=== PATIENT | female | born 1940 | race Caucasian/White ===

== ENCOUNTER 2016-03-31 09:58 | Outpatient (CLI) | payer MEDICARE, BC | END 2016-03-31 09:59 | disposition home or self-care (01) | DX: M81.0 Age-related osteoporosis without current pathological fracture (principal); Z78.0 Asymptomatic menopausal state; E21.3 Hyperparathyroidism, unspecified ==

== ENCOUNTER 2016-04-11 08:00 | Outpatient (CLI) | payer MEDICARE, BC | END 2016-04-11 23:59 | DX: D75.89 Other specified diseases of blood and blood-forming organs (principal); E78.2 Mixed hyperlipidemia; Z79.899 Other long term (current) drug therapy; N18.9 Chronic kidney disease, unspecified; E21.0 Primary hyperparathyroidism; E11.9 Type 2 diabetes mellitus without complications; E55.9 Vitamin D deficiency, unspecified ==

== ENCOUNTER 2016-07-05 14:32 | Outpatient (CLI) | payer MEDICARE, BC | END 2016-07-05 14:33 | disposition home or self-care (01) | DX: N18.9 Chronic kidney disease, unspecified (principal); E11.9 Type 2 diabetes mellitus without complications; Z79.899 Other long term (current) drug therapy; E55.9 Vitamin D deficiency, unspecified; M81.0 Age-related osteoporosis without current pathological fracture ==

== ENCOUNTER 2016-08-11 06:11 | Day surgery (SDC) | payer MEDICARE, BC ==
[2016-08-11] MEDS ORDERED: PHENYLEPHRINE 2.5% OPHTH 2 ML DROPS ONE (06:22)
[2016-08-11 06:50] VITALS: BP 178/100
--- NOTE | 2016-08-11 08:43 | OPERATIVE REPORT ---
DATE OF SURGERY: 08/11/2016 00:00:00 She was scheduled for cataract surgery of the left eye; however cataract surgery was canceled preoperatively due to the patient's eating a meal at 6-o' clock this morning and unable to undergo sedation or any other anesthesia. Her cataract surgery will be rescheduled. JOB #: [id number] EXT JOB #:[id number] MTDElaine
== END 2016-08-11 06:12 | disposition home or self-care (01) ==
LOC: SDS 06:11
PROVIDERS: ATTEND Ophthalmology
DX: Z53.9 Procedure and treatment not carried out, unspecified reason (principal)

== ENCOUNTER 2016-09-08 07:55 | Day surgery (SDC) | payer MEDICARE, BC ==
[~2016-09-08 07:55] MED LIST: PHENYLEPHRINE 2.5% OPHTH 2 ML DROPS ONE
[2016-09-08] MEDS ORDERED: LACTATED RINGERS 500 ML IV ONE (08:01)
[2016-09-08] MEDS ORDERED: PROPARACAINE 0.5% OPHTH DROPS 15 ML OPTH ONE ×2 (08:32→09:15)
[2016-09-08] MEDS ORDERED: CYCLOPENTOLATE 1% OPHTH DROPS 2 ML OPTH ONE (08:32)
[2016-09-08] MEDS ORDERED: PHENYLEPHRINE 2.5% OPHTH 2 ML DROPS OPTH ONE (08:32)
[2016-09-08] MEDS ORDERED: KETOROLAC 0.45% OPHTH DROPS OPTH ONE (08:33)
[2016-09-08] MEDS ORDERED: BRIMONIDINE 0.2% OPHTH DROPS 5 ML OPTH ONE (09:14)
[2016-09-08] MEDS ORDERED: EPINEPHrine 1 MG/ML AMP IVP ONE (09:14)
[2016-09-08] MEDS ORDERED: CHONDR SULF/HYALURONATE SYRINGE IO ONE (09:15)
[2016-09-08] MEDS ORDERED: BSS/LIDOCAINE/EPINEPHRINE 1 ML SYRINGE IO ONE ×2 (09:16)
[2016-09-08] MEDS ORDERED: TIMOLOL 0.5% OPHTH DROPS OPTH ONE (09:16)
[2016-09-08] MEDS ORDERED: TRIAMCIN/MOXIFLOX/VANCO 1 ML VIAL IO ONE ×2 (09:16)
[2016-09-08] MEDS ORDERED: MIDAZOLAM 2 MG/2 ML VIAL IVP ONE (09:19)
[2016-09-08 09:49] VITALS: BP 131/57
--- NOTE | 2016-09-10 02:50 | OPERATIVE REPORT ---
DATE OF SURGERY: 09/08/2016 00:00:00 PREOPERATIVE DIAGNOSIS: Visually significant cataract, left eye. Cataract surgery was performed on th e right eye in 2002 by a different surgeon. POSTOPERATIVE DIAGNOSIS: Visually significant cataract, left eye. Cataract surgery was performed on t he right eye in 2002 by a different surgeon. PROCEDURE: Phacoemulsification and posterior chamber intraocular lens implant, left eye. SURGEON: Cristhian Villatoro MD ANESTHESIA: Monitored anesthesia care. COMPLICATIONS: None. OPERATIVE INDICATIONS: This is a 76-year-old woman with progressive vision loss in the left eye due t o 3+ nuclear sclerotic, 2 to 3+ cortical, and 2+ posterior subcapsular cataract. Best corrected visu al acuity was 20/100 with hand motion vision on glare in the left eye. Indications for surgery were overall decrease in vision, difficulty seeing words on a computer screen, difficulty reading, difficu lty seeing words closed caption or game scores on TV, difficulty seeing street signs, difficulty driv ing in low light or at night, difficulty driving at night because of headlights and difficulty with g lare of bright lights in some situation. She was consented at length concerning the risks and benefi ts of cataract surgery, after which she expressed a desire to proceed with surgery. OPERATIVE PROCEDURE: The patient was taken into operating room #2 and placed under monitored anesthes ia care. A surgical time-out was conducted, confirming correct the patient, correct procedure, and co rrect surgical site. She was given topical anesthesia and then prepped and draped in the usual steril e fashion. The eye was entered at the 6- and 3-o'clock positions. Intracameral shugarcaine was injected into the anterior chamber, followed by Viscoat. A continuous tear curvilinear capsulorrhexis was performed. T he nucleus was hydrodissected and phacoemulsified. The cortex was evacuated using automated infusion aspiration. Provisc was injected into the capsular bag and a 18.5-diopter intraocular lens inserted i nto the bag. Approximately 0.7 mL of a mixture of triamcinolone, moxifloxacin, and vancomycin was in jected subconjunctivally in the superior quadrant for infection and inflammation prophylaxis. I/A was used to evacuate the viscoelastic materials. The eye was inflated to physiologic pressure using kylah nced salt solution and found to be watertight. The patient was taken from the operating room in good condition and given postoperative instructions. JOB #: [id number] EXT JOB #:[id number]
== END 2016-09-08 07:56 | disposition home or self-care (01) ==
LOC: SDS 07:55
PROVIDERS: ATTEND Ophthalmology
PROC: 08RK3JZ Replacement of Left Lens with Synthetic Substitute, Percutaneous Approach (ICD-10-PCS; principal; 2016-09-08 09:00)
DX: E11.36 Type 2 diabetes mellitus with diabetic cataract (principal); H25.812 Combined forms of age-related cataract, left eye; Z79.82 Long term (current) use of aspirin; I10 Essential (primary) hypertension; E78.00 Pure hypercholesterolemia, unspecified; I25.10 Atherosclerotic heart disease of native coronary artery without angina pectoris; I49.3 Ventricular premature depolarization; Z82.49 Family history of ischemic heart disease and other diseases of the circulatory system; Z80.9 Family history of malignant neoplasm, unspecified; Z96.641 Presence of right artificial hip joint; Z95.5 Presence of coronary angioplasty implant and graft
CPT/HCPCS: 66984; A9270; V2632

== ENCOUNTER 2016-11-18 14:39 | Outpatient (CLI) | payer MEDICARE, BC ==
[2016-11-18 14:27] LABS: BILIRUBIN,TOTAL 0.5 mg/dL (0.2-1.0); CALCIUM 9.1 mg/dL (8.5-10.3); CREATININE 1.3 mg/dL (0.4-1.0); POTASSIUM 4.3 mmol/L (3.5-5.0); TOTAL PROTEIN 7.3 g/dL (6.7-8.2)
[2016-11-18 15:12] LABS: HEMOGLOBIN A1C 0.64 g/dL
== END 2016-11-18 14:40 | disposition home or self-care (01) ==
LOC: LAB.R 14:39
PROVIDERS: ATTEND Physician Assistant Medical
DX: E11.9 Type 2 diabetes mellitus without complications (principal); Z79.899 Other long term (current) drug therapy; N18.9 Chronic kidney disease, unspecified
CPT/HCPCS: 80053; 83036

== ENCOUNTER 2018-01-18 17:19 | Outpatient (CLI) | payer MEDICARE, BC | END 2018-01-18 17:20 | disposition EMS.NT | LOC: EMS 17:19 | PROVIDERS: ATTEND Surgery | DX: M25.572 Pain in left ankle and joints of left foot (principal); W07.XXXA Fall from chair, initial encounter; Y92.000 Kitchen of unspecified non-institutional (private) residence as the place of occurrence of the external cause ==

== ENCOUNTER 2018-01-23 11:24 | Outpatient (CLI) | payer MEDICARE, BC ==
--- NOTE | 2018-01-23 13:55 | XRAY Report ---
Reason: FOOT PAIN,RIGHT Procedure Date: 01/23/2018 Accession Number: [id number] / [id number] Procedure: XR - Foot 3 View RT CPT Code: FULL RESULT: EXAM: RIGHT FOOT RADIOGRAPHY EXAM DATE: 01/23/2018 11:40 AM. CLINICAL HISTORY: Foot pain, right. COMPARISON: Foot 3 view right 05/23/2014 5:07 PM. TECHNIQUE: 3 views. FINDINGS: Bones: There is a fracture at the base of the fifth metatarsal with intra-articular extension. Joints: Normal. No subluxations. Soft Tissues: Vascular calcifications are identified. IMPRESSION: Base of the fifth metatarsal fracture with extension to the joint space. RADIA
== END 2018-01-23 11:25 | disposition home or self-care (01) ==
LOC: DI 11:24
PROVIDERS: ATTEND Physician Assistant Medical
DX: S92.351A Displaced fracture of fifth metatarsal bone, right foot, initial encounter for closed fracture (principal)

== ENCOUNTER 2018-01-26 08:00 | Outpatient (CLI) | payer MEDICARE, BC ==
[2018-01-26 11:32] LABS: BASOPHILS % (AUTO) 0.6 %; EOSINOPHILS # (AUTO) 0.1 10^3/uL (0.0-0.7); HGB - HEMOGLOBIN 12.8 g/dL (12.0-16.0); LYMPHOCYTES # (AUTO) 1.3 10^3/uL (1.5-3.5); LYMPHOCYTES % (AUTO) 29.2 %; MEAN CORPUSCULAR HEMOGLOBIN 33.8 pg (27.0-31.0); MEAN CORPUSCULAR HGB CONC 33.9 g/dL (32.0-36.0); MEAN CORPUSCULAR VOLUME 99.7 fL (81.0-99.0); MEAN PLATELET VOLUME 9.7 fL (7.9-10.8); MONOCYTES # (AUTO) 0.5 10^3/uL (0.0-1.0); NEUTROPHILS # (AUTO) 2.6 10^3/uL (1.5-6.6); NEUTROPHILS % (AUTO) 56.2 %; PLT - PLATELET COUNT 287 10^3/uL (130-450); RED BLOOD COUNT 3.78 10^6/uL (4.20-5.40); RED CELL DISTRIBUTION WIDTH 14.2 % (12.0-15.0); WHITE BLOOD COUNT 4.6 x10^3/uL (4.8-10.8)
[2018-01-26 11:36] LABS: BILIRUBIN,URINE NEGATIVE (NEGATIVE); GLUCOSE, URINE (UA) NEGATIVE (NEGATIVE); KETONES,URINE (UA) NEGATIVE (NEGATIVE); LEUKOCYTE ESTERASE, URINE SMALL (NEGATIVE); NITRITE,URINE NEGATIVE (NEGATIVE); OCCULT BLOOD,URINE NEGATIVE (NEGATIVE); PH,URINE 5.5 PH (5.0-7.5); PROTEIN,URINE NEGATIVE (NEGATIVE); UROBILINOGEN,URINE 0.2 (NORMAL) E.U./dL (NORMAL)
[2018-01-26 11:37] LABS: CLARITY,URINE SL. CLOUDY (CLEAR)
[2018-01-26 11:47] LABS: BACTERIA,URINE Few /HPF (None Seen); RBC,URINE 0-5 /HPF (0-5); SQUAMOUS EPITHELIAL CELL,UR FEW Squamous (<= Few)
[2018-01-26 11:58] LABS: ALBUMIN 3.4 g/dL (3.2-5.5); ALBUMIN/GLOBULIN RATIO 0.9 (1.0-2.2); ALKALINE PHOSPHATASE 80 IU/L (42-121); ALT ALANINE AMINOTRANSFERASE 14 IU/L (10-60); AST ASPARTATE AMINOTRANSFERASE 18 IU/L (10-42); BILIRUBIN,TOTAL 0.6 mg/dL (0.2-1.0); BUN - BLOOD UREA NITROGEN 43 mg/dL (6-20); CALCIUM 9.1 mg/dL (8.5-10.3); CARBON DIOXIDE - CO2 24 mmol/L (21-32); CHLORIDE 105 mmol/L (101-111); CHOL/HDL RATIO 4.3 (<4.4); CHOLESTEROL 250 mg/dL; CREATININE 1.4 mg/dL (0.4-1.0); GFR - MDRD 37 (>89); GLUCOSE 102 mg/dL (70-100); HDL CHOLESTEROL 58 mg/dL; LDL CHOLESTEROL,CALCULATED 178 mg/dL; LDL/HDL RATIO 3.1 (<4.4); SODIUM 136 mmol/L (135-145); VLDL CHOLESTEROL 14 mg/dL
[2018-01-26 12:08] LABS: THYROID STIMULATING HORMONE 1.53 uIU/mL (0.34-5.60)
[2018-01-26 12:55] LABS: HB2 TOTAL 13.3 g/dL; HEMOGLOBIN A1C 0.61 g/dL; HEMOGLOBIN A1C % 6.3 % (4.6-6.2)
== END 2018-01-26 23:59 | disposition home or self-care (01) ==
LOC: LAB.R 08:00
PROVIDERS: ATTEND Physician Assistant Medical
DX: R41.89 Other symptoms and signs involving cognitive functions and awareness (principal); R33.0 Drug induced retention of urine; M81.0 Age-related osteoporosis without current pathological fracture; Z79.899 Other long term (current) drug therapy; E11.9 Type 2 diabetes mellitus without complications; I25.10 Atherosclerotic heart disease of native coronary artery without angina pectoris; E78.2 Mixed hyperlipidemia
CPT/HCPCS: 80053; 80061; 81001; 81003; 82306; 82607; 83036; 83721; 84443; 85025; 87086

== ENCOUNTER 2018-01-26 10:33 | Outpatient (CLI) | payer MEDICARE, BC ==
--- NOTE | 2018-01-26 11:16 | XRAY Report ---
Reason: CELLULITIS,GREAT TOE,LEFT Procedure Date: 01/26/2018 Accession Number: [id number] / [id number] Procedure: XR - Foot 3 View LT CPT Code: FULL RESULT: EXAM: LEFT FOOT RADIOGRAPHY EXAM DATE: 01/26/2018 10:35 AM. CLINICAL HISTORY: CELLULITIS,GREAT TOE,LEFT. COMPARISON: FOOT 3 VIEW RT 01/23/2018 11:30 AM. TECHNIQUE: 3 views. FINDINGS: Bones: There is a impacted subacute appearing proximal first phalanx fracture with overlying soft tissue swelling; there is proximal intra-articular extension. Bones appear qualitatively osteopenic. Joints: Degenerative changes throughout the midfoot suggestive of early neuropathic pattern. No subluxations. Soft Tissues: Vascular calcifications as well as aforementioned soft tissue swelling. IMPRESSION: Subacute appearing toe fracture as described. RADIA The above findings of fracture were discussed with Laurie Rico by Dr. Felipe Quintero at 11:14 hrs on 01/26/18.
== END 2018-01-26 10:34 | disposition home or self-care (01) ==
LOC: DI 10:33
PROVIDERS: ATTEND Physician Assistant Medical
DX: L03.032 Cellulitis of left toe (principal); S92.412D Displaced fracture of proximal phalanx of left great toe, subsequent encounter for fracture with routine healing; R41.89 Other symptoms and signs involving cognitive functions and awareness; R33.0 Drug induced retention of urine; M81.0 Age-related osteoporosis without current pathological fracture; Z79.899 Other long term (current) drug therapy; E11.9 Type 2 diabetes mellitus without complications; I25.10 Atherosclerotic heart disease of native coronary artery without angina pectoris; E78.2 Mixed hyperlipidemia
CPT/HCPCS: 80053; 80061; 81001; 82306; 82607; 83036; 84443; 85025; 87086

== ENCOUNTER 2018-03-02 11:43 | Outpatient (CLI) | payer MEDICARE, BC ==
[2018-03-02 16:29] LABS: ALBUMIN 3.7 g/dL (3.2-5.5); ALKALINE PHOSPHATASE 92 IU/L (42-121); ALT ALANINE AMINOTRANSFERASE 16 IU/L (10-60); AST ASPARTATE AMINOTRANSFERASE 24 IU/L (10-42); BILIRUBIN,TOTAL 0.4 mg/dL (0.2-1.0); BUN - BLOOD UREA NITROGEN 34 mg/dL (6-20); CARBON DIOXIDE - CO2 25 mmol/L (21-32); CHLORIDE 102 mmol/L (101-111); CHOL/HDL RATIO 3.6 (<4.4); CHOLESTEROL 257 mg/dL; CREATININE 1.3 mg/dL (0.4-1.0); GFR - MDRD 40 (>89); GLUCOSE 100 mg/dL (70-100); HDL CHOLESTEROL 72 mg/dL; LDL CHOLESTEROL,CALCULATED 169 mg/dL; LDL/HDL RATIO 2.3 (<4.4); SODIUM 136 mmol/L (135-145); TOTAL PROTEIN 7.5 g/dL (6.7-8.2); VLDL CHOLESTEROL 16 mg/dL
[2018-03-02 16:39] LABS: BILIRUBIN,URINE NEGATIVE (NEGATIVE); GLUCOSE, URINE (UA) NEGATIVE (NEGATIVE); KETONES,URINE (UA) NEGATIVE (NEGATIVE); LEUKOCYTE ESTERASE, URINE NEGATIVE (NEGATIVE); NITRITE,URINE NEGATIVE (NEGATIVE); OCCULT BLOOD,URINE NEGATIVE (NEGATIVE); PROTEIN,URINE TRACE mg/dL (NEGATIVE); UROBILINOGEN,URINE 0.2 (NORMAL) E.U./dL (NORMAL)
[2018-03-02 16:40] LABS: CLARITY,URINE CLEAR (CLEAR)
== END 2018-03-02 23:59 | disposition home or self-care (01) ==
LOC: LAB.R 11:43
PROVIDERS: ATTEND Physician Assistant Medical
DX: N18.3 Chronic kidney disease, stage 3 (moderate) (principal); M81.0 Age-related osteoporosis without current pathological fracture; Z79.899 Other long term (current) drug therapy; R41.89 Other symptoms and signs involving cognitive functions and awareness; E78.2 Mixed hyperlipidemia
CPT/HCPCS: 80053; 80061; 81001; 81003; 82306; 82607; 83721; 87086

== ENCOUNTER 2018-03-27 11:17 | Outpatient (CLI) | payer MEDICARE, BC ==
[2018-03-27 17:32] LABS: BUN - BLOOD UREA NITROGEN 30 mg/dL (6-20); CALCIUM 9.5 mg/dL (8.5-10.3); CARBON DIOXIDE - CO2 25 mmol/L (21-32); CHLORIDE 100 mmol/L (101-111); CHOL/HDL RATIO 2.5 (<4.4); CHOLESTEROL 187 mg/dL; CREATININE 1.3 mg/dL (0.4-1.0); GFR - MDRD 40 (>89); GLUCOSE 111 mg/dL (70-100); HDL CHOLESTEROL 75 mg/dL; LDL CHOLESTEROL,CALCULATED 98 mg/dL; LDL/HDL RATIO 1.3 (<4.4); SODIUM 136 mmol/L (135-145); VLDL CHOLESTEROL 14 mg/dL
== END 2018-03-27 23:59 | disposition home or self-care (01) ==
LOC: LAB.R 11:17
PROVIDERS: ATTEND Physician Assistant Medical
DX: E55.9 Vitamin D deficiency, unspecified (principal); Z79.899 Other long term (current) drug therapy; N18.3 Chronic kidney disease, stage 3 (moderate); E78.2 Mixed hyperlipidemia
CPT/HCPCS: 80048; 80061; 82306; 82607; 83721

== ENCOUNTER 2018-03-27 12:47 | Outpatient (CLI) | payer MEDICARE, BC ==
--- NOTE | 2018-03-27 17:23 | Ultrasound Report ---
Reason: CKD STAGE 3 Procedure Date: 03/27/2018 Accession Number: [id number] / [id number] Procedure: US - Retroperitoneal CPT Code: FULL RESULT: EXAM: RENAL ULTRASOUND EXAM DATE: 03/27/2018 03:09 PM. CLINICAL HISTORY: CKD STAGE 3. COMPARISON: ABDOMEN/PELVIS W/O 01/16/2013 10:01 AM. TECHNIQUE: Real-time scanning was performed with static images obtained. FINDINGS: The study is limited by poor acoustic windows. Right Kidney: 9.6 cm maximal dimension. Limited evaluation of a question of a 2.2 x 1.9 x 2.1 cm exophytic hypoechoic superior pole mass with no vascularity by color Doppler. There is no definite correlate on the [address] CT. No hydronephrosis. Left Kidney: 8.9 cm maximal dimension. No hydronephrosis. Evaluation is limited. Bladder: Bilateral jets seen. The prevoid bladder volume was 242 cc. The postvoid bladder volume was 42 cc. Other: None. IMPRESSION: No urinary obstruction. Suggestion of a right kidney upper pole 2.2 cm mass is poorly seen due to acoustic windows. Recommend definitive characterization by multiphase CT renal mass protocol. RADIA
== END 2018-03-27 12:48 | disposition home or self-care (01) ==
LOC: DI 12:47
PROVIDERS: ATTEND Physician Assistant Medical
DX: N18.3 Chronic kidney disease, stage 3 (moderate) (principal); E55.9 Vitamin D deficiency, unspecified; E78.2 Mixed hyperlipidemia; Z79.899 Other long term (current) drug therapy
CPT/HCPCS: 76770; 80048; 80061; 82306; 82607; 83721

== ENCOUNTER 2018-04-24 09:30 | Outpatient (CLI) | payer MEDICARE, BC ==
--- NOTE | 2018-04-24 12:48 | MRI Report ---
Reason: COGNITIVE CHENGES Procedure Date: 04/24/2018 Accession Number: [id number] / [id number] Procedure: MRI - Brain W/O CPT Code: FULL RESULT: EXAM: MRI BRAIN WITHOUT CONTRAST EXAM DATE: 04/24/2018 10:57 AM. CLINICAL HISTORY: Cognitive changes. COMPARISON: None. TECHNIQUE: Multiplanar, multisequence T1-weighted and fluid-sensitive MR sequences of the brain were performed. Sequences optimized for routine evaluation. Other: None. IV Contrast: None. FINDINGS: Brain Volume: Mild diffuse atrophy is present. Parenchyma/Dura: No mass, acute infarct or hemorrhage. Confluent white matter T2/FLAIR bright signal is seen throughout the cerebral hemispheres and brainstem. Extension into the external and extreme capsules is noted. Patchy involvement is seen throughout the deep nuclear region bilaterally. Linear cystic focus is seen laterally in the left cerebellar hemisphere. Punctate cystic focus is seen in the anterior body of the right caudate nucleus. Ventricles/Cisterns: No hydrocephalus. No abnormal extra-axial fluid collection or hemorrhage. Orbits: Unremarkable. Note is made of scleral buckling procedure and lens removal. Sella Turcica: The pituitary gland, cavernous sinuses, suprasellar cistern and optic chiasm are unremarkable. IAC: Symmetric and unremarkable. Vasculature: Normal signal flow void is seen in the major arterial structures at the skull base. The vertebrobasilar system is small in caliber. Prominent P-comm are noted bilaterally with near origin of the LENS CEMENTER. Sinuses: No acute appearing sinus disease. Bones: No focal pathologic appearing marrow signal changes. Other: None. IMPRESSION: 1. No acute intracranial abnormality. No acute infarct, mass or hemorrhage. 2. Confluent white matter T2/FLAIR bright signal is seen throughout the cerebral hemispheres, deep nuclear region, and brainstem. This is nonspecific. This can be seen secondary to chronic hypertensive encephalopathy or toxic/metabolic processes. Appearance is more extensive than typical small vessel ischemic change. 3. Punctate cystic focus in the anterior body of the right caudate nucleus with a linear cystic focus laterally in the left cerebellum. This is consistent with old infarcts. RADIA
== END 2018-04-24 09:31 | disposition home or self-care (01) ==
LOC: DI 09:30
PROVIDERS: ATTEND Physician Assistant Medical
DX: R41.89 Other symptoms and signs involving cognitive functions and awareness (principal)
CPT/HCPCS: 70551

== ENCOUNTER 2018-12-01 11:01 | Outpatient (CLI) | payer MEDICARE, BC ==
[2018-12-01 11:35] LABS: CALCIUM 9.6 mg/dL (8.5-10.3); CREATININE 1.5 mg/dL (0.4-1.0)
[2018-12-01] MEDS ORDERED: IOVERSOL 320 100 ML VIAL IVP ONE (12:24)
--- NOTE | 2018-12-03 19:06 | CT Report ---
Reason: RENAL MASS PROTOCOL Procedure Date: 12/01/2018 Accession Number: [id number] / [id number] Procedure: CT - ABDOMEN W/WO CPT Code: FULL RESULT: EXAM: CT ABDOMEN WITHOUT AND WITH CONTRAST EXAM DATE: 12/01/2018 12:23 PM. HISTORY: RENAL MASS PROTOCOL. COMPARISON: ABDOMEN W/WO 04/03/2018 9:29 AM. TECHNIQUE: Routine helical CT imaging was performed through the abdomen before and after administration of IV contrast: 90 mL Optiray 320. Enteric contrast: No. Reconstruction: Coronal and sagittal. In accordance with CT protocol optimization, one or more of the following dose reduction techniques were utilized for this exam: automated exposure control, adjustment of mA and/or KV based on patient size, or use of iterative reconstructive technique. FINDINGS: Lung Bases: Coronary artery atherosclerotic calcifications. Liver: Large hypoattenuating mass in segment 5 and 8 of the right hepatic lobe with heterogeneous arterial and portal venous phase enhancement, with the mass measuring 9.0 x 5.3 cm, series 7, axial image 19, previously measuring approximately 3.7 x 3.4 cm, significantly increased in size Gallbladder/Bile Ducts: Cholecystectomy. Spleen: Splenectomy. Possible splenule's in the left upper quadrant beneath the hemidiaphragm, series 7, axial image 19, unchanged. Pancreas: Moderate atrophy. No ductal dilatation. No mass. Adrenal Glands: Normal. Right kidney: Cortical thinning. Lobular contour may be due to scarring. Small mass in the superior pole, series 7, axial image 30, measures 2.1 cm, previously 2.0 cm, measuring 15 HU before contrast, 104 HU cortical medullary phase and 63 HU nephrographic phase, consistent with enhancing mass, similar to prior. No hydronephrosis. Left kidney: Cortical thinning. Lobular contour may be due to scarring. No solid renal mass. No hydronephrosis. Peritoneal Cavity/Bowel: Normal. No free fluid, free air or adenopathy. No masses or acute inflammatory process. Vasculature: No aneurysms or other significant abnormality. Bones: No significant abnormality. Other: Small fat-containing abdominal ventral hernias. Mildly prominent right pericardiophrenic angle lymph node, series 7, axial image 17, measures 9 mm, previously 4 mm, larger. IMPRESSION: 1. Significant increase in size of hypoattenuating mass in segment 5 and 8 of the right hepatic lobe. Suspect metastasis. Consider biopsy for diagnosis. 2. Small enhancing mass in the superior pole right kidney. Suspect renal cell carcinoma. Not significantly changed in size in the interval. 3. Bilateral renal cortical thinning and suspected renal scarring. 4. Interval increase in size of a subcentimeter right pericardiophrenic angle lymph node. Attention on follow-up. RADIA
== END 2018-12-01 11:02 | disposition home or self-care (01) ==
LOC: LAB 11:01
PROVIDERS: ATTEND Urology
DX: N28.89 Other specified disorders of kidney and ureter (principal); R16.0 Hepatomegaly, not elsewhere classified
CPT/HCPCS: 36415; 74170; 80048; Q9967

== ENCOUNTER 2019-04-09 10:40 | Outpatient (CLI) | payer MEDICARE, BC ==
[2019-04-09] MEDS ORDERED: IOVERSOL 320 100 ML VIAL IVP ONE ×2 (11:27→12:45)
--- NOTE | 2019-04-15 20:47 | CT Report ---
Reason: SECONDARY MALIGNANT TUMOR OF RT KIDNEY Procedure Date: 04/09/2019 Accession Number: [id number] / [id number] Procedure: CT - ABDOMEN W/WO CPT Code: Final Report FULL RESULT: EXAM: CT ABDOMEN WITHOUT AND WITH CONTRAST EXAM DATE: 04/09/2019 11:48 AM. HISTORY: SECONDARY MALIGNANT TUMOR OF RT KIDNEY. COMPARISON: ABDOMEN W/WO 12/01/2018 12:07 PM ABDOMEN W/WO 04/03/2018 9:29 AM ABDOMEN/PELVIS W/O 01/16/2013 10:01 AM. TECHNIQUE: Routine helical CT imaging was performed through the abdomen before and after administration of IV contrast: OPTIRAY 320. Enteric contrast: No. Reconstruction: Coronal and sagittal. In accordance with CT protocol optimization, one or more of the following dose reduction techniques were utilized for this exam: automated exposure control, adjustment of mA and/or KV based on patient size, or use of iterative reconstructive technique. FINDINGS: Lung Bases: Unremarkable. Liver: Large irregular hypoattenuating mass with central enhancement throughout the right lobe of the liver is significantly increased from before with dominant component measuring 12.8 x 6.6 cm. There are multiple new small hypoattenuating lesions throughout the light lobe, for example a 2 cm lesion inferiorly (image 33 series 6). Gallbladder/Bile Ducts: Cholecystectomy. Unchanged dilation of the common bile duct. Spleen: Surgically absent. Pancreas: Atrophic. Adrenal Glands: Normal. Kidneys: Bilateral renal atrophy and scarring, greater on the left. No hydronephrosis. The enhancing exophytic mass arising from the posterior right kidney measures slightly larger than priors, currently measuring 2.3 x 1.7 cm, measured about 2.2 x 1.6 cm on 12/01/2018 and 2.1 x 1.4 cm on 04/03/2018. Peritoneal Cavity/Bowel: Surgical changes of the stomach. Visualized is not dilated. No free fluid or free air.. No lymphadenopathy. Vasculature: Mild to moderate atherosclerosis. Bones: Advanced disk degeneration in the spine. Other: Unchanged fat-containing ventral hernia. IMPRESSION: 1. Significantly increased size of the large right hepatic mass. Multiple new liver lesions are consistent with metastatic disease. 2. The right renal mass measures slightly larger from priors. RADIA
== END 2019-04-09 10:41 | disposition home or self-care (01) ==
LOC: DI 10:40
PROVIDERS: ATTEND Family Medicine
DX: C79.01 Secondary malignant neoplasm of right kidney and renal pelvis (principal); K76.9 Liver disease, unspecified
CPT/HCPCS: 74170; Q9967